=== PATIENT | female | born 1995 ===

== ENCOUNTER 2022-08-28 14:35 | Outpatient (CLI) | payer OTHER ==
[2022-08-28 18:39] LABS: HCG,QUALITATIVE BLOOD POSITIVE
== END 2022-08-28 14:36 | disposition home or self-care (01) ==
LOC: LAB.N 14:35
PROVIDERS: ATTEND Physician Assistant
DX: Z32.01 Encounter for pregnancy test, result positive (principal)
CPT/HCPCS: 36415; 84703

== ENCOUNTER 2022-09-12 14:35 | Outpatient (CLI) | payer OTHER ==
[2022-09-12 17:55] LABS: BASOPHILS % (AUTO) 0.4 %; EOSINOPHILS # (AUTO) 0.1 10^3/uL (0.0-0.7); EOSINOPHILS % (AUTO) 0.7 %; HGB - HEMOGLOBIN 12.3 g/dL (12.0-16.0); MEAN CORPUSCULAR HEMOGLOBIN 31.2 pg (27.0-31.0); MEAN CORPUSCULAR HGB CONC 33.2 g/dL (32.0-36.0); MEAN CORPUSCULAR VOLUME 93.9 fL (81.0-99.0); MONOCYTES # (AUTO) 0.8 10^3/uL (0.0-1.0); MONOCYTES % (AUTO) 8.2 %; NEUTROPHILS # (AUTO) 6.3 10^3/uL (1.5-6.6); NEUTROPHILS % (AUTO) 68.4 %; PLT - PLATELET COUNT 264 10^3/uL (130-450); RED BLOOD COUNT 3.94 10^6/uL (4.20-5.40); RED CELL DISTRIBUTION WIDTH 12.1 % (12.0-15.0); WHITE BLOOD COUNT 9.2 x10^3/uL (4.8-10.8)
[2022-09-13 04:09] LABS: HBsAG SCREEN Negative (Negative)
[2022-09-13 05:12] LABS: RPR Non Reactive (Non Reactive)
[2022-09-13 08:09] LABS: VARICELLA-ZOSTER AB IGG 775 index (Immune >165)
[2022-09-14 05:08] LABS: HCV AB Non Reactive (Non Reactive)
[2022-09-14 09:08] LABS: HIV SCREEN 4TH GENERATION Non Reactive (Non Reactive)
== END 2022-09-12 14:36 | disposition home or self-care (01) ==
LOC: LAB.N 14:35
PROVIDERS: ATTEND Obstetrics & Gynecology
DX: Z34.90 Encounter for supervision of normal pregnancy, unspecified, unspecified trimester (principal)
CPT/HCPCS: 36415; 85025; 86592; 86762; 86787; 86803; 86850; 86900; 86901; 87340; 87389

== ENCOUNTER 2022-09-16 22:12 | Outpatient (CLI) | payer OTHER ==
--- NOTE | 2022-09-17 00:24 | Ultrasound Report ---
PROCEDURE: OB First Trimester w/TV INDICATIONS: POSITIVE TEST OUTSIDE/PRIOR DATING DATA: Last menstrual period (LMP): 07/23/2022. LMP-based estimated date of delivery (RANDEE): 04/29/2023. TECHNIQUE: Real-time scanning was performed of the fetus and maternal pelvic organs, with image documentation. Endovaginal scanning was also performed to better visualize the fetus and maternal ovaries. COMPARISON: None. FINDINGS: Embryo: There is an intrauterine with a gestational sac, yolk sac, and pole. The anson n gestational sac diameter measures 2.6 cm corresponding to gestational age of 7 weeks 4 days. A feta l pole measures up to 0.5 cm corresponding to gestational age of 6 weeks 1 day. No heart motion was identified on M-mode Doppler interrogation. Measurement variability in dating: +/- 4 weeks by LMP, +/- 7 days by mean sac diameter (use before 6 weeks gestation if crown-rump length not able to be measured), +/- 5 days by crown-rump length (6-12 weeks gestation). Maternal organs: The right and left ovaries appear within normal size limits. There is a thick-walled cyst within the left ovary measuring up to 2.3 cm consistent with a corpus luteal cyst. IMPRESSION: 1. Intrauterine demonstrated with no heart motion identified. Discordance of the mean gestational sac diameter and crown-rump length of the pole also demonstrated. The findings are suspicious for demise although the differential includes an early . Recommend clinica l follow-up and short-term repeat ultrasound if indicated. Findings reported to Dr. Gutierrez by the radiological technologist at the conclusion of the study. Reviewed by: Zhou Delgado MD on 09/17/2022 12:22 AM PDT Approved by: Zhou Delgado MD on 09/17/2022 12:22 AM PDT Station ID: [id number]
== END 2022-09-16 22:13 | disposition home or self-care (01) ==
LOC: DI 22:12
PROVIDERS: ATTEND Obstetrics & Gynecology
DX: O26.841 Uterine size-date discrepancy, first trimester (principal); Z3A.01 Less than 8 weeks gestation of pregnancy

== ENCOUNTER 2022-09-17 12:01 | Outpatient (CLI) | payer OTHER | END 2022-09-17 12:02 | disposition home or self-care (01) | LOC: LAB.N 12:01 | PROVIDERS: ATTEND Obstetrics & Gynecology | DX: O20.0 Threatened abortion (principal) | CPT/HCPCS: 36415; 84702 ==

== ENCOUNTER 2022-09-19 09:23 | Outpatient (CLI) | payer OTHER | END 2022-09-19 09:24 | disposition home or self-care (01) | LOC: LAB.N 09:23 | PROVIDERS: ATTEND Obstetrics & Gynecology | DX: O20.0 Threatened abortion (principal) | CPT/HCPCS: 36415; 84702 ==

== ENCOUNTER 2022-10-15 11:17 | Outpatient (CLI) | payer OTHER | END 2022-10-15 11:18 | disposition home or self-care (01) | LOC: LAB.N 11:17 | PROVIDERS: ATTEND Obstetrics & Gynecology | DX: O03.9 Complete or unspecified spontaneous abortion without complication (principal) | CPT/HCPCS: 36415; 84702 ==

== ENCOUNTER 2022-11-06 10:53 | Outpatient (CLI) | payer OTHER ==
[2022-11-06 18:24] LABS: BILIRUBIN,URINE NEGATIVE (NEGATIVE); GLUCOSE, URINE (UA) NEGATIVE (NEGATIVE); KETONES,URINE (UA) NEGATIVE (NEGATIVE); LEUKOCYTE ESTERASE, URINE NEGATIVE (NEGATIVE); NITRITE,URINE NEGATIVE (NEGATIVE); OCCULT BLOOD,URINE TRACE-INTA (NEGATIVE); PROTEIN,URINE NEGATIVE (NEGATIVE); UROBILINOGEN,URINE 0.2 (NORMAL) E.U./dL (NORMAL)
[2022-11-06 18:27] LABS: CLARITY,URINE CLEAR (CLEAR)
[2022-11-06 18:53] LABS: BACTERIA,URINE Rare /HPF (None Seen); SQUAMOUS EPITHELIAL CELL,UR FEW Squamous (<= Few); WBC,URINE 0-3 /HPF (0-5)
== END 2022-11-06 10:54 | disposition home or self-care (01) ==
LOC: LAB.N 10:53
PROVIDERS: ATTEND Obstetrics & Gynecology
DX: O03.9 Complete or unspecified spontaneous abortion without complication (principal)
CPT/HCPCS: 36415; 81001; 84702; 87086

== ENCOUNTER 2023-05-29 08:00 | Outpatient (CLI) | payer OTHER ==
[2023-05-29 16:04] LABS: GLUCOSE, URINE (UA) NEGATIVE (NEGATIVE); KETONES,URINE (UA) TRACE mg/dL (NEGATIVE); LEUKOCYTE ESTERASE, URINE SMALL (NEGATIVE); NITRITE,URINE NEGATIVE (NEGATIVE); OCCULT BLOOD,URINE SMALL (NEGATIVE); PROTEIN,URINE TRACE mg/dL (NEGATIVE); UROBILINOGEN,URINE 0.2 (NORMAL) E.U./dL (NORMAL)
[2023-05-29 16:05] LABS: BILIRUBIN,URINE NEGATIVE (NEGATIVE); CLARITY,URINE HAZY (CLEAR)
[2023-05-29 16:19] LABS: BACTERIA,URINE Many /HPF (None Seen); SQUAMOUS EPITHELIAL CELL,UR MANY Squamous (<= Few); WBC,URINE >25 /HPF (0-5)
[2023-05-29 16:20] LABS: SPERM,URINE PRESENT
== END 2023-05-29 23:59 | disposition home or self-care (01) ==
LOC: LAB.WC 08:00
PROVIDERS: ATTEND Obstetrics & Gynecology
DX: Z34.00 Encounter for supervision of normal first pregnancy, unspecified trimester (principal)
CPT/HCPCS: 81001; 81003; 87086

== ENCOUNTER 2023-06-15 17:16 | Outpatient (CLI) | payer OTHER ==
--- NOTE | 2023-06-16 20:33 | Ultrasound Report ---
PROCEDURE: OB 1st Trimester w/TV INDICATIONS: POSITIVE TEST OUTSIDE/PRIOR DATING DATA: Last menstrual period (LMP): 04/19/2023. LMP-based estimated date of delivery (RANDEE): 01/24/2024. First dating scan (date and location): Not available. Estimated date of delivery (RANDEE) from first dating scan: 01/23/2024. TECHNIQUE: Real-time scanning was performed of the fetus and maternal pelvic organs, with image documentation. Endovaginal scanning was also performed to better visualize the fetus and maternal ovaries. COMPARISON: None. FINDINGS: Intrauterine gestational sac present. Embryo: Nunez-rump length measures 1.3 cm, estimated gestational age is 8 weeks, 2 days. Heart rate: 164 bpm. Other: Incidentally noted of complex structure protruding into gestational sac measures 2.04 x 1.76 x 2.3 cm in size. Additional cystic structure is noted attaching to the tubular placental cordlike str ucture measures 6 x 7 x 5 mm in size. Measurement variability in dating: +/- 4 weeks by LMP, +/- 7 days by mean sac diameter (use before 6 weeks gestation if crown-rump length not able to be measured), +/- 5 days by crown-rump length (6-12 weeks gestation). Maternal organs: A corpus luteal cyst is seen in right ovary measures 4 x 3 x 4.1 cm. Left paraovaria n cyst measures 1.1 cm in size is also seen. IMPRESSION: 1. Single intrauterine gestational sac with fetus and yolk sac seen. Estimated gestational age is 8 w eeks, 2 days. heart rate is 164 bpm. 2. Heterogeneously hypoechoic structure is noted within endometrium extending into the gestational sa c as described above. Additional cystic structure is also seen attaching to the tubular placental cor d like structure. This is of indeterminate significance, suggest close ultrasound follow-up. Reviewed by: Bill Limon MD on 06/16/2023 8:32 PM PST Approved by: Bill Limon MD on 06/16/2023 8:32 PM PST Station ID: [id number]
== END 2023-06-15 17:17 | disposition home or self-care (01) ==
LOC: DI 17:16
PROVIDERS: ATTEND Obstetrics & Gynecology
DX: O28.3 Abnormal ultrasonic finding on antenatal screening of mother (principal); Z3A.08 8 weeks gestation of pregnancy

== ENCOUNTER 2023-06-26 08:00 | Outpatient (CLI) | payer OTHER ==
[2023-06-26 20:39] LABS: CHLAMYDIA TRACHOMATIS DNA NEGATIVE (NEGATIVE); NEISSERIA GONORRHOEAE DNA NEGATIVE (NEGATIVE); TRICHOMONAS VAGINALIS DNA NEGATIVE (NEGATIVE)
== END 2023-06-26 23:59 | disposition home or self-care (01) ==
LOC: LAB.WC 08:00
PROVIDERS: ATTEND Obstetrics & Gynecology
DX: Z34.00 Encounter for supervision of normal first pregnancy, unspecified trimester (principal)
CPT/HCPCS: 87086; 87491; 87591; 87661

== ENCOUNTER 2023-07-08 09:36 | Outpatient (CLI) | payer OTHER ==
[2023-07-08 11:44] LABS: BASOPHILS % (AUTO) 0.2 %; HCT - HEMATOCRIT 37.6 % (37.0-47.0); HGB - HEMOGLOBIN 12.1 g/dL (12.0-16.0); LYMPHOCYTES # (AUTO) 1.1 10^3/uL (1.5-3.5); LYMPHOCYTES % (AUTO) 21.2 %; MEAN CORPUSCULAR HEMOGLOBIN 30.6 pg (27.0-31.0); MEAN CORPUSCULAR HGB CONC 32.2 g/dL (32.0-36.0); MEAN CORPUSCULAR VOLUME 94.9 fL (81.0-99.0); MEAN PLATELET VOLUME 8.7 fL (7.9-10.8); MONOCYTES % (AUTO) 19.2 %; NEUTROPHILS # (AUTO) 3.1 10^3/uL (1.5-6.6); PLT - PLATELET COUNT 229 10^3/uL (130-450); RED BLOOD COUNT 3.96 10^6/uL (4.20-5.40); RED CELL DISTRIBUTION WIDTH 12.6 % (12.0-15.0); WHITE BLOOD COUNT 5.2 x10^3/uL (4.8-10.8)
[2023-07-09 03:11] LABS: HBsAG SCREEN Negative (Negative)
[2023-07-09 05:15] LABS: HCV AB Non Reactive (Non Reactive)
[2023-07-09 07:10] LABS: HIV SCREEN 4TH GENERATION Non Reactive (Non Reactive); RPR Non Reactive (Non Reactive)
[2023-07-09 09:09] LABS: VARICELLA-ZOSTER AB IGG 853 index (Immune >165)
== END 2023-07-08 09:37 | disposition home or self-care (01) ==
LOC: LAB.N 09:36 → LAB 09:37
PROVIDERS: ATTEND Obstetrics & Gynecology
DX: Z34.00 Encounter for supervision of normal first pregnancy, unspecified trimester (principal); Z36.89 Encounter for other specified antenatal screening
CPT/HCPCS: 36415; 85025; 86592; 86762; 86787; 86803; 86850; 86900; 86901; 87340; 87389

== ENCOUNTER 2023-08-21 08:00 | Outpatient (CLI) | payer OTHER | END 2023-08-21 23:59 | disposition home or self-care (01) | LOC: LAB.WC 08:00 | PROVIDERS: ATTEND Obstetrics & Gynecology | DX: R39.15 Urgency of urination (principal) | CPT/HCPCS: 87086 ==

== ENCOUNTER 2023-09-14 16:32 | Outpatient (CLI) | payer OTHER ==
--- NOTE | 2023-09-15 11:25 | Ultrasound Report ---
PROCEDURE: OB Anatomy Scan INDICATIONS: SUPERVISION OF OUTSIDE/PRIOR DATING DATA: Last menstrual period (LMP): 04/19/2023. LMP-based estimated date of delivery (RANDEE): 01/24/2024. First dating scan (date and location): 06/15/2023. Estimated date of delivery (RANDEE) from first dating scan: 01/23/2024. The below data below was generated using the ultrasound RANDEE of 01/23/2024 TECHNIQUE: Real-time scanning was performed of the fetus, with image documentation and biometric measurements. Endovaginal scanning: Not performed. COMPARISON: OB ultrasound 07/20/2023, 06/15/2023. FINDINGS: General: A single living intrauterine gestation is present. Presentation: Transverse, head to maternal right. Placenta: Placental position is anterior, without previa. Amniotic fluid index: 15.5 cm, within normal limits for gestational age. Largest pocket 4.6 cm. heart rate: 155 beats per minute. Maternal cervical canal: 3.6 cm long; normal length is 2.5 cm or more. No funneling. biometrics: Biparietal diameter: 5.2 cm, 21 weeks 6 days, 75%. Head circumference: 19.2 cm, 20 weeks 3 days. 56% Abdominal circumference: 16.98 cm, 22 weeks 0 days. 70% Femur length: 3.7 cm, 21 weeks 5 days. 63%. Estimated gestational age from initial scan: 21 weeks 1 day Composite gestational age from present scan: 21 weeks 4 days Estimated weight and percentile: 455 g, 81st percentile Measurement variability in biometric dating: +/- 10 days from 12-20 weeks gestation, +/- 2 weeks from 20-30 weeks gestation, +/- 3 weeks at 30 weeks gestation or later. Anatomic survey: Neuro: Ventricles are normal at less than 10 mm. Cisterna magna is normal at 3-11 mm. Cerebellum i s normal in size and morphology. Nuchal skin fold: Normal at less than 6 mm between 14 and 20 weeks gestational age. Face: Nose and lips, facial profile are normal. Spine: No evidence for spina bifida. Heart: 4-chambered heart is present, with normal ventricular outflow tracts. Diaphragm: Diaphragm is intact. Stomach: Left-sided stomach is present. Kidneys: No hydronephrosis. Normal is less than 5 mm in 2nd trimester, less than 7 mm in 3rd trimester. Cord: 3 vessel cord has orthotopic insertion. Bladder: Normal in size. Extremities: All 4 extremities are visualized. Right ovarian benign anechoic cyst measuring 2.4 cm. IMPRESSION: 1. Davison living intrauterine at 21 weeks 4 days based on today's ultrasound. Fetus is i n the 81st percentile for weight. 2. Normal placenta and amniotic fluid. 3. Normal and complete anatomic survey. Reviewed by: Bryant Mac MD on 09/15/2023 11:24 AM PDT Approved by: Bryant Mac MD on 09/15/2023 11:24 AM PDT Station ID: [id number]
== END 2023-09-14 16:33 | disposition home or self-care (01) ==
LOC: DI 16:32
PROVIDERS: ATTEND Nurse Practitioner
DX: Z34.02 Encounter for supervision of normal first pregnancy, second trimester (principal)

== ENCOUNTER 2023-10-26 10:42 | Outpatient (CLI) | payer OTHER ==
[2023-10-26 17:30] LABS: HCT - HEMATOCRIT 36.3 % (37.0-47.0); MEAN CORPUSCULAR HEMOGLOBIN 32.3 pg (27.0-31.0); MEAN CORPUSCULAR HGB CONC 33.1 g/dL (32.0-36.0); MEAN CORPUSCULAR VOLUME 97.8 fL (81.0-99.0); MEAN PLATELET VOLUME 9.8 fL (7.9-10.8); RED BLOOD COUNT 3.71 10^6/uL (4.20-5.40); RED CELL DISTRIBUTION WIDTH 13.2 % (12.0-15.0); WHITE BLOOD COUNT 12.2 x10^3/uL (4.8-10.8)
[2023-10-27 05:12] LABS: RPR Non Reactive (Non Reactive)
== END 2023-10-26 10:43 | disposition home or self-care (01) ==
LOC: LAB.N 10:42
PROVIDERS: ATTEND Nurse Practitioner
DX: Z34.00 Encounter for supervision of normal first pregnancy, unspecified trimester (principal)
CPT/HCPCS: 36415; 82950; 85027; 86592

== ENCOUNTER 2023-11-09 09:22 | Outpatient (CLI) | payer OTHER | END 2023-11-09 09:23 | disposition home or self-care (01) | LOC: LAB.N 09:22 | PROVIDERS: ATTEND Physician Assistant | DX: Z02.1 Encounter for pre-employment examination (principal) | CPT/HCPCS: 36415; 81599 ==

== ENCOUNTER 2023-12-09 15:38 | Outpatient (CLI) | payer OTHER ==
--- NOTE | 2023-12-10 15:53 | Ultrasound Report ---
PROCEDURE: OB Follow up INDICATIONS: ABN US OF PLACENTA OUTSIDE/PRIOR DATING DATA: Last menstrual period (LMP): 04/19/2023. LMP-based estimated date of delivery (RANDEE): 01/24/2024. First dating scan (date and location): 04/15/2024. Estimated date of delivery (RANDEE) from first dating scan: 01/23/2024. The below data below was generated using the working RANDEE of 01/24/2024 TECHNIQUE: Ultrasound of the gravid uterus was performed and recorded. COMPARISON: None. FINDINGS: General: A single live intrauterine gestation is present. Presentation: Breech Placenta: Placental position is anterior without previa. Near the cord insertion, probable accessor y placental lobe noted measuring 3.5 x 1.5 cm Amniotic fluid index: 12.1 cm, 28 percentile for gestational age. heart rate: 102 beats per minute. Maternal cervical canal: Not seen biometrics: Biparietal diameter: 9.0 cm, 36 week 4 day, 99 percentile Head circumference: 31.2 cm, 34 week 6 day, 51 percentile Abdominal circumference: 29.0 cm, 33 week 0 day, 40 percentile Femur length: 6.49 cm, 33 week 2 day, 35 percentile Estimated gestational age by working dates: 33 week 3 day Composite gestational age by current ultrasound: 34 week 3 day Estimated weight and percentile: 2235 g, 47 percentile Measurement variability in biometric dating: +/- 10 days from 12-20 weeks gestation, +/- 2 weeks from 20-30 weeks gestation, +/- 3 weeks at 30 weeks gestation or more. Other: Visualized anatomy within normal limits IMPRESSION: Single live intrauterine consistent with 34 week 3 day gestation by current ultrasound Reviewed by: Jelani May MD on 12/10/2023 2:52 PM KORIN Approved by: Jelani May MD on 12/10/2023 2:52 PM AKDT Station ID: [id number]
== END 2023-12-09 15:39 | disposition home or self-care (01) ==
LOC: DI 15:38
PROVIDERS: ATTEND Obstetrics & Gynecology
DX: O28.3 Abnormal ultrasonic finding on antenatal screening of mother (principal); Z3A.34 34 weeks gestation of pregnancy

== ENCOUNTER 2023-12-11 14:43 | Inpatient (IN) | payer OTHER ==
[2023-12-11] MEDS: LACTATED RINGERS 1,000 ML IV ONE ×2 (15:52→18:05)
[2023-12-11] MEDS ORDERED: TERBUTALINE 1 MG/ML VIAL SUBQ ONE (16:25)
[2023-12-11] MEDS ORDERED: BETAMETHASONE 30 MG/5 ML VIAL ONE (16:41)
[2023-12-11] MEDS ORDERED: CITRIC ACID/SODIUM CITRATE 15 ML UDC PO ONE (16:45)
--- NOTE | 2023-12-11 16:52 | HISTORY & PHYSICAL EXAMINATION ---
Admit History - Other Maternal History Other Maternal History: HPI: 20-year-old at 33 weeks gestation sent to L&D for tachycardia.. She has good movement. Denies loss of fluid. No ALAN/BV or RUQP. No vaginal bleeding. Denies nausea and vomiting. Denies urinary urgency or dysuria. She feels well overall. Did not think she was having contractions, but did feel something was rolling over. All other symptoms reviewed and were negative except per HPI. Course See record PMH Denies pertinent medical history PSH No previous surgeries OB History SH Denies tobacco,, drugs Family History Noncontributory Allergies No known drug allergy Medications vitamins Physical exam: General: Alert, oriented, no acute distress Head: Normal cephalic atraumatic Eyes: PERRLA, extraocular motions intact. Respiratory: Normal rate of respiration. No accessory muscle use, normal respiratory effort. Cardiovascular: Regular rate and rhythm Abdomen: Gravid, nontender, nondistended Extremities: Normal range of motion Neuro: Oriented x3. Normal movements Psych: Appropriate mood and affect. Normal judgment and insight FHT: 170 bpm baseline, frequent variable decelerations, 1 prolonged deceleration. No accelerations. [place]: Occasional Bedside ultrasound shows adequate fluid, no GARETT done, but fluid in all 4 quadrants and single quadrant greater than 2 cm. Plan Nonreassuring heart tracing -Patient observed in triage, with no resolution. No cause of heart rate decelerations noted. Did receive fluid bolus, but did not resolve. Without bleeding, significant contractions, reason for abnormal heart tracing, very concerning for wellbeing and will proceed with section. - section was recommended. Risks, benefits and alternatives were discussed including but not limited to infection, bleeding that may require blood products or hysterectomy for life saving measures, injury to surrounding organs including but not limited to bowel, bladder, ureters, tubes and ovaries and/or the baby. Should injury occur it could require longer/additional surgery to repair. The patient stated understanding and desired to proceed. All questions were answered posed by patient. -2 g cefazolin preop -admit to L&D, admit labs. 33 weeks gestation -Plan for transfer. Meds/Allgy - Allergies Allergies/Adverse Reactions: Allergies Allergy/AdvReac Type Severity Reaction Status Date / Time No Known Drug Allergies Allergy Verified 12/11/23 15:10 Plan for Labor - Plan For Labor I expect patient to be DC'd or transferred within 96 hours.: Yes
[2023-12-11 16:54] LABS: BASOPHILS % (AUTO) 0.2 %; BILIRUBIN,URINE NEGATIVE (NEGATIVE); CLARITY,URINE HAZY (CLEAR); EOSINOPHILS % (AUTO) 0.1 %; GLUCOSE, URINE (UA) NEGATIVE (NEGATIVE); HCT - HEMATOCRIT 35.4 % (37.0-47.0); HGB - HEMOGLOBIN 11.4 g/dL (12.0-16.0); KETONES,URINE (UA) NEGATIVE (NEGATIVE); LEUKOCYTE ESTERASE, URINE SMALL (NEGATIVE); LYMPHOCYTES # (AUTO) 1.8 10^3/uL (1.5-3.5); LYMPHOCYTES % (AUTO) 11.4 %; MEAN CORPUSCULAR HEMOGLOBIN 31.3 pg (27.0-31.0); MEAN CORPUSCULAR HGB CONC 32.2 g/dL (32.0-36.0); MEAN CORPUSCULAR VOLUME 97.3 fL (81.0-99.0); MONOCYTES # (AUTO) 1.3 10^3/uL (0.0-1.0); MONOCYTES % (AUTO) 8.4 %; NEUTROPHILS # (AUTO) 12.1 10^3/uL (1.5-6.6); NEUTROPHILS % (AUTO) 79.2 %; NITRITE,URINE NEGATIVE (NEGATIVE); OCCULT BLOOD,URINE NEGATIVE (NEGATIVE); PH,URINE 6.5 PH (5.0-7.5); PLT - PLATELET COUNT 186 10^3/uL (130-450); PROTEIN,URINE NEGATIVE (NEGATIVE); RED BLOOD COUNT 3.64 10^6/uL (4.20-5.40); RED CELL DISTRIBUTION WIDTH 12.6 % (12.0-15.0); UROBILINOGEN,URINE 0.2 (NORMAL) E.U./dL (NORMAL); WHITE BLOOD COUNT 15.3 x10^3/uL (4.8-10.8)
[2023-12-11] MEDS ORDERED: fentaNYL 100 MCG/2 ML VIAL ONE (16:59)
[2023-12-11] MEDS ORDERED: MORPHINE PF 5 MG/10 ML VIAL ONE (16:59)
[2023-12-11] MEDS ORDERED: LACTATED RINGERS 1,000 ML IV SCH ×3 (17:00→19:00)
[2023-12-11 17:09] LABS: ALBUMIN 3.3 g/dL (3.2-5.5); BILIRUBIN,TOTAL 0.3 mg/dL (0.2-1.0); CALCIUM 9.3 mg/dL (8.5-10.3); CREATININE 0.7 mg/dL (0.6-1.3); POTASSIUM 3.7 mmol/L (3.5-4.5); TOTAL PROTEIN 6.5 g/dL (6.4-8.9)
[2023-12-11] MEDS ORDERED: PHENYLEPHRINE HCL 0.5 MG/5 ML AMPULE ONE (17:09)
[2023-12-11] MEDS: BETAMETHASONE 30 MG/5 ML VIAL IM ONE (17:10)
[2023-12-11 17:11] LABS: BACTERIA,URINE Rare /HPF (None Seen); RBC,URINE 0-5 /HPF (0-5); SQUAMOUS EPITHELIAL CELL,UR MOD Squamous (<= Few)
[2023-12-11] MEDS ORDERED: OXYTOCIN 10 UNIT/ML VIAL ONE (17:16)
[2023-12-11] MEDS ORDERED: ceFAZolin 1 GM VIAL ONE (17:24)
[2023-12-11] MEDS ORDERED: ONDANSETRON 4 MG/2 ML VIAL ONE (17:32)
[2023-12-11] MEDS ORDERED: DEXMEDETOMIDINE 200 MCG/2 ML VIAL ONE (17:34)
[2023-12-11] MEDS ORDERED: KETOROLAC 30 MG/ML VIAL ONE (17:42)
[2023-12-11] MEDS ORDERED: HYDROmorphone 0.5 MG/0.5 ML SYRINGE IVP PRN (18:11)
[2023-12-11] MEDS ORDERED: fentaNYL 100 MCG/2 ML VIAL IVP PRN (18:11)
[2023-12-11] MEDS ORDERED: NALOXONE 0.4 MG/ML VIAL IVP PRN (18:11)
[2023-12-11] MEDS ORDERED: ATROPINE ABBOJECT 1 MG/10 ML SYRINGE IVP PRN (18:11)
[2023-12-11] MEDS ORDERED: ONDANSETRON 4 MG/2 ML VIAL IVP PRN (18:11)
[2023-12-11] MEDS ORDERED: MORPHINE 2 MG/ML CARPUJECT IVP PRN (18:11)
--- NOTE | 2023-12-11 18:11 | ANESTHESIA ---
Pre-Anesthesia VS, & Labs - Diagnosis non reassuring heart tones - Procedure primary c/s - NPO Other - Is Patient ?: Yes - Lab Results Current Lab Results: Laboratory Tests 12/11/23 16:30: Sodium 136, Potassium 3.7, Chloride 107, Carbon Dioxide 23, A nion Gap 6.0, BUN 16, Creatinine 0.7, Estimated GFR (MDRD) 100, Glucose 74, Calcium 9.3, Total Bilirubin 0.3, AST 13, ALT 17, Alkaline Phosphatase 117, Total Protein 6.5, Albumin 3.3, Globulin 3.2, Albumin/Globulin Ratio 1.0 12/11/23 16:30: WBC 15.3 H, RBC 3.64 L, Hgb 11.4 L, Hct 35.4 L, MCV 97.3, MCH 31.3 H, MCHC 32.2, RDW 12.6, Plt Count 186, MPV 11.0 H, Neut # (Auto) 12.1 H, Lymph # (Auto) 1.8, [place] # (Auto) 1.3 H, Eos # (Auto) 0.0, Baso # (Auto) 0.0, Absolute Nucleated RBC 0.00, Nucleated RBC % 0.0 Lab results reviewed: Yes Fish Bones: 12/11/23 16:30 12/11/23 16:30 Home Medications and Allergies Active Medications Lactated Ringer's (Lr) 1,000 mls @ 125 mls/hr IV .Q8H GILMAR Allergies/Adverse Reactions: Allergies Allergy/AdvReac Type Severity Reaction Status Date / Time No Known Drug Allergies Allergy Verified 12/11/23 15:10 Anes History & Medical History - Anesthetic History Family history of Anesthesia Complications: Denies Family history of Malignant Hyperthermia: Denies - Medical History Cardiovascular: reports: None Pulmonary: reports: None Gastrointestinal: reports: None Urinary: reports: None Neuro: reports: None Musculoskeletal: reports: None Endocrine/Autoimmune: reports: None Blood Disorders: reports: None Skin: reports: None Psychosocial: reports: No issues indicated History of Cancer?: No - Obstetrical History Events: reports: labor <37 weeks Exam General: Alert, Oriented x3, Cooperative, No acute distress Dental: WNL Mouth Openin Fingerbreadth Neck Mobility: Normal Mallampati classification: I Thyromental Distance: 4-6 cm Mental/Cognitive Status: Alert/Oriented X3, Normal for patient Plan Anesthesia Type: Spinal Consent for Procedure(s) Verified and Reviewed: Yes Code Status: Attempt Resuscitation ASA classification: 2-Mild systemic disease Is this case an emergency?: Yes
[2023-12-11] MEDS ORDERED: SIMETHICONE CHEW 80 MG TABLET PO PRN (18:42)
[2023-12-11] MEDS ORDERED: OXYTOCIN/SODIUM CHLORIDE 500 ML IV PRN (18:42)
[2023-12-11] MEDS ORDERED: oxyCODONE 5 MG TABLET PO PRN (18:42)
[2023-12-11] MEDS ORDERED: SODIUM CHLORIDE FLUSH 0.9% 10 ML SYRINGE IVP PRN (18:42)
[2023-12-11] MEDS ORDERED: ONDANSETRON ODT 4 MG TABLET TL PRN ×2 (18:42)
--- NOTE | 2023-12-11 18:42 | OPERATIVE REPORT ---
Operative Report - General Admit Date: 12/11/23 Planned Procedure: Primary low transverse section Pre-Op Diagnosis: Nonreassuring heart tracing Procedure Performed: Primary low transverse section Post Op Diagnosis: Nonreassuring heart tracing - Procedure Note Primary Surgeon: James Broderick MD Secondary Surgeon: JOSE ELIAS Lynne Anesthesia Provider: Lorin Barnard CRNA Anesthesia Technique: Spinal Pathology: Placenta Placental cultures Estimated Blood Loss (mL): 600 Findings: Normal appearing, uterus, tubes ovaries. Light meconium-stained fluid Complications: None - Other Other Information/Narrative: Patient was a 28-year-old -0-1-0 at 33 weeks 5 days gestation who presented to clinic today for routine OB visit. At that visit she was noted to have heart rate in the 180s and was sent for NST. While being monitored on labor and delivery, she had a tachycardia to the 170s, variable decelerations and minimal variability. She was monitored for short while in labor and delivery for resolution while getting an IV bolus, but this did not continue. She did have an occasional contraction, but overall felt well. She had no symptoms otherwise and felt a normal health. Denies fever, chills, infection. Has had movement. Due to the persistent nonreassuring heart tracing, deci sunday was made to move towards section. section was recommended. Risks, benefits and alternatives were discussed including but not limited to infection, bleeding that may require blo od products or hysterectomy for life saving measures, injury to surrounding organs including but not limited to bowel, bladder, ureters, tubes and ovaries and/or the baby. Should injury occur it could require longer/additional surgery to repair. The patient stated understanding and desired to proceed. All questions were answered posed by patient. Prior to being taken to the OR, 2 grams of cefazolin IV was administered. The patient was taken to the operating room where regional anesthesia was found to be adequate. She was then prepared and draped in the usual sterile fashion in the dorsal supine position with a leftward tilt displacing the uterus. Gaitan was draining to gravity. SCDs were on bilateral lower extremities. Time out was taken. A pfannenstiel skin incision was then made with the scalpel and carried through to the underlying layer of fascia. The fascia was incised in the midline and the incision extended laterally bluntly. The superior aspect of the facial incision was then grasped with the Coby clamps, elevated and the underlying rectus muscles dissected off sharply. Attention was then turned to the inferior aspect of this incision which in a similar fashion was grasped, elevated with the Coby clamps and the rectus muscle dissected off bluntly. The rectus muscles were in the midline. The peritoneum identified and entered bluntly. The peritoneal incision was then extended superiorly and inferiorly with good visualization of the bladder. The bladder blade was inserted. The lower uterine segment was identified and incised in a transverse fashion w ith the scalpel. The uterine incision was then extended bluntly laterally. Artificial rupture membranes demonstrated a light meconium stained fluid.. The bladder blade was removed. The fetus was in a breech presentation as delivered to the sacrum. Due to the small size of the fetus, it easily delivered to the scapulas and the arms were medially rotated and extended through the hysterotomy. The head delivered easily afterwards. was not vigorous at delivery, so the umbilical cord was clamped times two and cut. The was handed to the pediatric team. The placenta was removed with gentle traction. Oxytocin was added to the IV fluid and was allowed to run freely. The uterus was exteriorized and cleared of all clots and debris. The uterine incision was inspected and found to be without any extensions and was repaired with 0 Vicryl in a running, locked fashion. A second imbricating layer was performed. Upon inspection, the repaired hysterotomy was found to be hemostatic. The uterus was firm and returned to the abdomen. The gutters were cleared of all clots and debris. The muscle layer was examined and found to be hemostatic. The fascia was reapproximated with 0 Vicryl in a running fashion. The skin was closed in a subcuticular fashion with 4-0 Monocryl. The patient tolerated the procedure well. Sponge, lap and needle counts were correct times three. The patient was taken to the recovery room in stable condition. I appreciate the assistance of JOSE ELIAS Lynne during this procedure, and the assistance in retraction, visualization, dissection, and overall assistance during the case were instrumental to the patient's wellbeing. APGARs: Pending weight: Pending
[2023-12-11 22:47] VITALS: O2SAT 98
[2023-12-12] MEDS: ACETAMINOPHEN 500 MG TABLET PO ONE (00:02)
[2023-12-12] MEDS: KETOROLAC 30 MG/ML VIAL IVP SCH (00:03)
[2023-12-12] MEDS: ACETAMINOPHEN 500 MG TABLET PO SCH (00:03)
[2023-12-12] MEDS ORDERED: SODIUM CHLORIDE FLUSH 0.9% 10 ML SYRINGE IVP SCH (01:00)
[2023-12-12 06:29] LABS: BASOPHILS % (AUTO) 0.3 %; EOSINOPHILS % (AUTO) 0.3 %; HCT - HEMATOCRIT 32.2 % (37.0-47.0); HGB - HEMOGLOBIN 10.6 g/dL (12.0-16.0); LYMPHOCYTES # (AUTO) 1.4 10^3/uL (1.5-3.5); LYMPHOCYTES % (AUTO) 11.6 %; MEAN CORPUSCULAR HGB CONC 32.9 g/dL (32.0-36.0); MEAN CORPUSCULAR VOLUME 97.3 fL (81.0-99.0); MONOCYTES # (AUTO) 0.9 10^3/uL (0.0-1.0); NEUTROPHILS # (AUTO) 9.4 10^3/uL (1.5-6.6); NEUTROPHILS % (AUTO) 79.3 %; PLT - PLATELET COUNT 172 10^3/uL (130-450); RED BLOOD COUNT 3.31 10^6/uL (4.20-5.40); RED CELL DISTRIBUTION WIDTH 12.5 % (12.0-15.0); WHITE BLOOD COUNT 11.8 x10^3/uL (4.8-10.8)
--- NOTE | 2023-12-12 08:19 | PROVIDER PROGRESS NOTE ---
Subjective - Subjective Subjective: Subjective Patient reports she is doing well. Lochia appropriate. Denies heavy bleeding. Ambulating. Pelvic and abdominal pain well-controlled. Tolerating oral intake. Diet: Regular. Catheter recently removed, has not voided yet. Passing flatus. Denies BM. Will start pumping this morning Denies feeling lightheaded, dizzy or excessively fatigued. Objective General: Alert, oriented, no apparent distress. Cardiovascular: Regular rate. Regular rhythm. Lungs: No increased work of breathing. Abdomen: Uterus firm. Below umbilicus. No guarding or rebound. Extremities: No pain on palpation. No cords palpated. Distal pulses intact. Incision: Bandage in place. Assessment and Plan day 1. -Routine care -Encouraged consultation and pumping as baby is in the NICU. Plan to discharge tomorrow to visit baby -Anticipate discharge tomorrow Status post primary low-transverse section -Routine postop care. Objective - Vital Signs/Intake & Output Vital Signs: Vital Signs x48h Temp Pulse Resp BP Pulse Ox 12/12/23 04:55 98.4 F 12/12/23 02:00 98.8 F 82 16 114/71 98 Intake & Output: Intake & Output 12/09/23 12/10/23 12/11/23 12/12/23 23:59 23:59 23:59 23:59 Intake Total 500 1800 Output Total 950 Balance 500 850 - Lab Results Fish Bones: 12/12/23 06:15 12/11/23 16:30 Other Labs: Lab Results x24hrs 12/12/23 12/11/23 12/11/23 Range/Units 06:15 16:46 16:30 WBC 11.8 H (4.8-10.8) x10^3/uL RBC 3.31 L (4.20-5.40) 10^6/uL Hgb 10.6 L (12.0-16.0) g/dL Hct 32.2 L (37.0-47.0) % MCV 97.3 (81.0-99.0) fL MCH 32.0 H (27.0-31.0) pg MCHC 32.9 (32.0-36.0) g/dL RDW 12.5 (12.0-15.0) % Plt Count 172 (130-450) 10^3/uL MPV 10.0 (7.9-10.8) fL Neut # (Auto) 9.4 H (1.5-6.6) 10^3/uL Lymph # (Auto) 1.4 L (1.5-3.5) 10^3/uL [place] # (Auto) 0.9 (0.0-1.0) 10^3/uL Eos # (Auto) 0.0 (0.0-0.7) 10^3/uL Baso # (Auto) 0.0 (0.0-0.1) 10^3/uL Absolute Nucleated RBC 0.00 x10^3/uL Nucleated RBC % 0.0 /100WBC Sodium (135-145) mmol/L Potassium (3.5-4.5) mmol/L Chloride (101-111) mmol/L Carbon Dioxide (21-32) mmol/L Anion Gap (6-13) BUN (6-20) mg/dL Creatinine (0.6-1.3) mg/dL Estimated GFR (MDRD) (>89) Glucose (74-104) mg/dL Calcium (8.5-10.3) mg/dL Total Bilirubin (0.2-1.0) mg/dL AST (10-42) IU/L ALT (10-60) IU/L Alkaline Phosphatase (42-121) IU/L Total Protein (6.4-8.9) g/dL Albumin (3.2-5.5) g/dL Globulin (2.1-4.2) g/dL Albumin/Globulin Ratio (1.0-2.2) Urine Color YELLOW Urine Clarity HAZY (CLEAR) Urine pH 6.5 (5.0-7.5) PH Ur Specific [place] 1.015 (1.002-1.030) Urine Protein NEGATIVE (NEGATIVE) mg/dL Urine Glucose (UA) NEGATIVE (NEGATIVE) mg/dL Urine Ketones NEGATIVE (NEGATIVE) mg/dL Urine Occult Blood NEGATIVE (NEGATIVE) Urine Nitrite NEGATIVE (NEGATIVE) Urine Bilirubin NEGATIVE (NEGATIVE) Urine Urobilinogen 0.2 (NORMAL) (NORMAL) E.U./dL Ur Leukocyte Esterase SMALL H (NEGATIVE) Urine RBC 0-5 (0-5) /HPF Urine WBC 11-25 H (0-5) /HPF Ur Squamous Epith Cells MOD Squamous H (<= Few) Urine Bacteria Rare (None Seen) /HPF Blood Type O POSITIVE Antibody Screen NEGATIVE Crossmatch IS Only See Detail 12/11/23 12/11/23 Range/Units 16:30 16:30 WBC 15.3 H (4.8-10.8) x10^3/uL RBC 3.64 L (4.20-5.40) 10^6/uL Hgb 11.4 L (12.0-16.0) g/dL Hct 35.4 L (37.0-47.0) % MCV 97.3 (81.0-99.0) fL MCH 31.3 H (27.0-31.0) pg MCHC 32.2 (32.0-36.0) g/dL RDW 12.6 (12.0-15.0) % Plt Count 186 (130-450) 10^3/uL MPV 11.0 H (7.9-10.8) fL Neut # (Auto) 12.1 H (1.5-6.6) 10^3/uL Lymph # (Auto) 1.8 (1.5-3.5) 10^3/uL [place] # (Auto) 1.3 H (0.0-1.0) 10^3/uL Eos # (Auto) 0.0 (0.0-0.7) 10^3/uL Baso # (Auto) 0.0 (0.0-0.1) 10^3/uL Absolute Nucleated RBC 0.00 x10^3/uL Nucleated RBC % 0.0 /100WBC Sodium 136 (135-145) mmol/L Potassium 3.7 (3.5-4.5) mmol/L Chloride 107 (101-111) mmol/L Carbon Dioxide 23 (21-32) mmol/L Anion Gap 6.0 (6-13) BUN 16 (6-20) mg/dL Creatinine 0.7 (0.6-1.3) mg/dL Estimated GFR (MDRD) 100 (>89) Glucose 74 (74-104) mg/dL Calcium 9.3 (8.5-10.3) mg/dL Total Bilirubin 0.3 (0.2-1.0) mg/dL AST 13 (10-42) IU/L ALT 17 (10-60) IU/L Alkaline Phosphatase 117 (42-121) IU/L Total Protein 6.5 (6.4-8.9) g/dL Albumin 3.3 (3.2-5.5) g/dL Globulin 3.2 (2.1-4.2) g/dL Albumin/Globulin Ratio 1.0 (1.0-2.2) Urine Color Urine Clarity (CLEAR) Urine pH (5.0-7.5) PH Ur Specific [place] (1.002-1.030) Urine Protein (NEGATIVE) mg/dL Urine Glucose (UA) (NEGATIVE) mg/dL Urine Ketones (NEGATIVE) mg/dL Urine Occult Blood (NEGATIVE) Urine Nitrite (NEGATIVE) Urine Bilirubin (NEGATIVE) Urine Urobilinogen (NORMAL) E.U./dL Ur Leukocyte Esterase (NEGATIVE) Urine RBC (0-5) /HPF Urine WBC (0-5) /HPF Ur Squamous Epith Cells (<= Few) Urine Bacteria (None Seen) /HPF Blood Type Antibody Screen Crossmatch IS Only
[2023-12-12] MEDS: DOCUSATE SODIUM 100 MG CAPSULE PO SCH (08:54)
[2023-12-12] MEDS: IBUPROFEN 600 MG TABLET PO SCH (18:14)
[2023-12-13 04:36] LABS: AMPHETAMINE SCREEN,URINE NEGATIVE (NEGATIVE); BARBITURATE SCREEN,UR NEGATIVE (NEGATIVE); BENZODIAZEPINES SCREEN, URINE NEGATIVE (NEGATIVE); BUPRENORPHINE SCREEN, URINE NEGATIVE (NEGATIVE); COCAINE SCREEN URINE NEGATIVE (NEGATIVE); METHADONE SCREEN, URINE NEGATIVE (NEGATIVE); METHAMPHETAMINES SCREEN, URINE NEGATIVE (NEGATIVE); OPIATE SCREEN, URINE NEGATIVE (NEGATIVE); OXYCODONE SCREEN, URINE NEGATIVE (NEGATIVE); THC CANNABINOID SCREEN, URINE NEGATIVE (NEGATIVE); TRICYCLIC ANTIDEPRESSANT,URINE NEGATIVE (NEGATIVE)
--- NOTE | 2023-12-13 08:16 | Discharge Plan ---
Discharge Plan Problem Reviewed?: No Disposition: Home, Self Care Condition: Good Prescriptions: Escitalopram [Lexapro] 10 mg PO DAILY #90 tab Diet: Regular Shower Restrictions: No Instruction Topics: , Depression No Smoking: If you smoke, Please STOP! Call for help. Follow-up with: Jelena Hood PA [Primary Care Provider] - James Broderick MD [Provider Admit Priv/Credential] -
--- NOTE | 2023-12-13 08:51 | DISCHARGE SUMMARY ---
Discharge Summary Admit Date: 12/11/23 Discharge Date: 12/13/23 Discharging Provider: James Broderick MD Code Status: Attempt Resuscitation Condition at Discharge: Good Discharge Disposition: 01 Home, Self Care - DIAGNOSES Admission Diagnoses: 33 weeks gestation Nonreassuring heart tracing Discharge Diagnoses with Status of Each Condition: Status post primary low-transverse section Delivery of live villagran - HPI History of Present Illness: Subjective Patient reports she is doing well. Lochia appropriate. Denies heavy bleeding. Ambulating. Pelvic and abdominal pain well-controlled. Tolerating oral intake. Diet: Regular. Voiding without difficulty. Passing flatus. Denies BM. at [facility]. Pumping slow, but getting a small amount. Denies feeling lightheaded, dizzy or excessively fatigued. Objective General: Alert, oriented, no apparent distress. Cardiovascular: Regular rate. Regular rhythm. Lungs: No increased work of breathing. Abdomen: Uterus firm. Below umbilicus. No guarding or rebound. Extremities: No pain on palpation. No cords palpated. Distal pulses intact. Incision: Clean, dry, and intact - HOSPITAL COURSE Hospital Course: Patient seen in clinic at 33 weeks gestation for routine visit. At that time she was noted to have tachycardia in the 180s. She was sent to labor and delivery for an NST. During that time, she had tachycardia with frequent variable decelerations as well as an occasional prolonged deceleration. We initially tried intrauterine for resuscitation with fluid management. She had no signs of infection, bleeding, other causes of her distress. After observing for short course without resolution, decision was made to proceed with primary low-transverse section. She delivered a , 33-week female who was resuscitated and stabilized and transferred to the [facility]. Her surgery was uncomplicated and course was similarly uneventful. She was discharged on postoperative day 2. Discussed wound care and depression risks. Will call if things develop sooner. - ALLERGIES Allergies/Adverse Reactions: Allergies Allergy/AdvReac Type Severity Reaction Status Date / Time No Known Drug Allergies Allergy Verified 12/11/23 15:10 - MEDICATIONS Home Medications: Ambulatory Orders Medication Instructions Recorded Confirmed Docusate Sodium 100Mg Capsule 100 - 200 mg PO BID PRN #60 cap 12/13/23 [Colace 100Mg Capsule] Escitalopram [Lexapro] 10 mg PO DAILY #90 tablet 12/13/23 Ibuprofen [Motrin] 600 mg PO Q6H PRN #30 tab 12/13/23 oxyCODONE [Roxicodone] 5 mg PO Q4H PRN #20 tablet 12/13/23 - LABS Result Diagrams: 12/12/23 06:15 12/11/23 16:30 - FOLLOW [facility] - TIME SPENT Time Spent in Discharge (Minutes): 30
[2023-12-13] MEDS ORDERED: ESCITALOPRAM 10 MG TABLET PO SCH (09:00)
--- NOTE | 2023-12-13 11:03 | Labor Flowsheet ---
Labor Flowsheet Datetime Report Generated by CPN: 12/13/2023 11:03 Datetime: 12/11/2023 16:37 I/O Interventions: Up to BR Datetime: 12/11/2023 16:33 VITAL SIGNS Pulse: 82 SpO2 (%): 100 Temperature (C): 37.3 LaborFlag: OB Triage Datetime: 12/11/2023 16:30 UTERINE ACTIVITY Monitor Mode: External Frequency (min): irregulr Quality: Moderate Duration (sec): 30-90 Resting Tone (Palpate): Non Relaxed ASSESSMENT A Monitor Mode: External US FHR Baseline Rate : 170 FHR Baseline Changes: Tachycardia Variability: Minimal - Undetectable to <=5 bpm Accelerations: None Decelerations: Late; Variable; Prolonged Category: Category II Datetime: 12/11/2023 16:26 Provider Reviewed Strip: Yes Datetime: 12/11/2023 16:24 Comments: Provider at bedside. Datetime: 12/11/2023 16:11 Stage of : OB Triage Monitor Interventions for FHR: Ultrasound Adjusted Datetime: 12/11/2023 16:01 Actions for Decelerations: IV Bolus; Blood Pressure; Provider Notified Datetime: 12/11/2023 15:55 COMMUNICATION Communication: RN at Bedside; RN Reviewed Strip; Call/Page Placed to Provider Provider Notified (Name): Kapadia/Davie Notification Reason: Status Communication Comments: Requested provider to bedside STAT. RN updated enterprise systems architect and requested nancy tional RNs at bedside. Datetime: 12/11/2023 15:46 PAIN Pain Scale: 0 Pain Presence: None/Denies Pain Type: N/A Pain Location: Abdomen Pain Coping: Talking Through Contractions Pain Assessment Comments: Patient unaware of contractions. Denies feeling any tightening/cramping. Abdomen palpates mod/firm during contraction. Datetime: 12/11/2023 15:36 PATIENT CARE Patient Position/Activity: HOB Lowered; Left Lateral Datetime: 12/11/2023 15:35 Respirations: 14 MATERNAL ASSESSMENT Level of Consciousness: Alert DTR's/Clonus: DTRs 2+ Headache: Denies Nausea/Vomiting: Denies RUQ Epigastric Pain: Denies
[2023-12-13 11:15] VITALS: BP 105/66
== END 2023-12-13 08:21 | disposition home or self-care (01) | DRG 788 ==
LOC: WFO 14:43 → FBP 14:45 → WFO 18:23
PROVIDERS: ADMIT Obstetrics & Gynecology; ATTEND Obstetrics & Gynecology
PROC: 10D00Z1 Extraction of Products of Conception, Low, Open Approach (ICD-10-PCS; principal; 2023-12-11 16:45)
DX: O76 Abnormality in fetal heart rate and rhythm complicating labor and delivery (principal); Z3A.33 33 weeks gestation of pregnancy; Z37.0 Single live birth; Z87.891 Personal history of nicotine dependence
CPT/HCPCS: 36415; 59025; 80053; 80306; 81001; 85025; 86850; 86900; 86901; 86920; 87070; 87205; 87797; 99215; A9270; J2274; J2372; J7120; 81003; 85027; 87077; 87181

== ENCOUNTER 2024-02-09 08:00 | Outpatient (CLI) | payer OTHER ==
[2024-02-09 18:09] LABS: BILIRUBIN,URINE NEGATIVE (NEGATIVE); GLUCOSE, URINE (UA) NEGATIVE (NEGATIVE); KETONES,URINE (UA) NEGATIVE (NEGATIVE); LEUKOCYTE ESTERASE, URINE TRACE (NEGATIVE); NITRITE,URINE NEGATIVE (NEGATIVE); OCCULT BLOOD,URINE NEGATIVE (NEGATIVE); PROTEIN,URINE NEGATIVE (NEGATIVE); UROBILINOGEN,URINE 0.2 (NORMAL) E.U./dL (NORMAL)
[2024-02-09 18:35] LABS: CLARITY,URINE CLOUDY (CLEAR)
[2024-02-09 18:36] LABS: AMORPHOUS SEDIMENT,UR Marked /LPF; BACTERIA,URINE Rare /HPF (None Seen); RBC,URINE None Seen /HPF (0-5); SQUAMOUS EPITHELIAL CELL,UR RARE Squamous (<= Few); WBC,URINE 0-3 /HPF (0-5)
== END 2024-02-09 23:59 | disposition home or self-care (01) ==
LOC: LAB.N 08:00
PROVIDERS: ATTEND Obstetrics & Gynecology
DX: R30.0 Dysuria (principal)
CPT/HCPCS: 81001; 87077; 87086